=== PATIENT | female | born 1995 | race Caucasian/White ===

== ENCOUNTER 2017-08-04 07:15 | Inpatient (IN) ==
--- OUTSIDE RECORDS SUMMARY | 2017-08-04 07:28 | External Medical Summary | Continuity of Care Document ---
:1995 Author Organization [facility] Address [address] [place], [place] [id number] Phone Allergies, Adverse Reactions, Alerts Substance Reaction Severity Status No Known Drug Allergies Unknown Active Medications Medication Instructions Dosage Effective Dates Status Comments (start - stop) Vitamin B-6 50 mg - Active capsule Unisom Sleepgels 50 take 1 capsule by oral 50 MG - Active mg capsule route every day at bedtime as needed VITAMINS take 1 by Oral route - Active (unknown strength) every day Problems Condition Effective Dates (start - stop) Clinical Status Encntr screen for infections w sexl - mode of transmiss Encounter for screening for oth - infec/parastc diseases Encntr for suprvsn of normal first - preg, first trimester Encounter for screening of - mother 10 weeks gestation of - Maternal care for excess growth, - first trimester, unsp 13 weeks gestation of - Maternal care for excess growth, - second tri, unsp 19 weeks gestation of - Anemia complicating , third - trimester Encntr for suprvsn of normal first - preg, third trimester 30 weeks gestation of - Encntr for suprvsn of normal first - preg, second trimester 27 weeks gestation of - Encntr for suprvsn of normal first - preg, second trimester 23 weeks gestation of - Encntr for suprvsn of normal first - preg, second trimester 19 weeks gestation of - Encntr for suprvsn of normal first - preg, third trimester 32 weeks gestation of - Asthma Active Procedures Procedure Date No Charge Sonogram Infct antign, chlamydia trac, ampl OB Panel With An HIV Neisseria Gonorrhoeae, Amplification Urine Culture Antibody, varicella-zoster Venpnctr fngr/heel/ear stick routne Initial OB Visit No Charge OB Prepayment Agreement Results Test Name Date and Time Measure Units Reference Range Abnormal Flag Comments Panel Description: OBSTETRIC PANEL WHITE BLOOD CELL 10.5 Thousand/uL 3.8-10.8 N COUNT 14:40:00 RED BLOOD CELL 4.51 Million/uL 3.80-5.10 N COUNT 14:40:00 HEMOGLOBIN 12.8 g/dL 11.7-15.5 N 14:40:00 HEMATOCRIT 38.5 % 35.0-45.0 N 14:40:00 MCV 85.4 fL 80.0-100.0 N 14:40:00 MCH 28.4 pg 27.0-33.0 N 14:40:00 MCHC 33.2 g/dL 32.0-36.0 N 14:40:00 RDW 13.0 % 11.0-15.0 N 14:40:00 PLATELET COUNT 301 Thousand/uL 140-400 N 14:40:00 MPV 10.4 fL 7.5-12.5 N 14:40:00 ABSOLUTE 7896 cells/uL 1624-3659 H NEUTROPHILS 14:40:00 ABSOLUTE 1817 cells/uL 850-3900 N LYMPHOCYTES 14:40:00 ABSOLUTE 683 cells/uL 200-950 N MONOCYTES 14:40:00 ABSOLUTE 74 cells/uL 15-500 N EOSINOPHILS 14:40:00 ABSOLUTE 32 cells/uL 0-200 N BASOPHILS 14:40:00 NEUTROPHILS 75.2 % N 14:40:00 LYMPHOCYTES 17.3 % N 14:40:00 MONOCYTES 6.5 % N 14:40:00 EOSINOPHILS 0.7 % N 14:40:00 BASOPHILS 0.3 % N 14:40:00 ANTIBODY SCREEN, NO ANTIBODIES N RBC W/REFL ID, 14:40:00 DETECTED Reference range TITER AND AG No antibodies detected This assay is a screening test for the detection of red blood cell antibodies. The test is not to be used for pretransfusion screening or for the medical management of an alloimmunized . ABO GROUP O 14:40:00 RH TYPE RH(D) 14:40:00 POSITIVE RPR (DX) W/REFL NON-REACTIVE NON-REACTIV N TITER AND 14:40:00 E CONFIRMATORY TESTING HEPATITIS B NON-REACTIVE NON-REACTIV N SURFACE ANTIGEN 14:40:00 E RUBELLA ANTIBODY 1.78 index N Index (IGG) 14:40:00 Interpretation ----- <0.90 Not consistent with Immunity 0.90-0.99 Equivocal > or=1.00 Consistent with Immunity The presence of rubella IgG antibody suggests immunization or past or current infection withrubella virus.Test performed at [facility] [id number] [place] [address]Ijpxhcb r: VIJAY POLANCO DO,MPH Panel Description: Varicella zoster virus IgG Ab [Units/volume] in Serum by Immunoassay VARICELLA <135.00 index L Index ZOSTER VIRUS 14:40:00 Interpretation ANTIBODY (IGG) --------- <135.00 Negative - Antibody not detected 135.00 - 164.99 Equivocal > re=473.00 Positive - Antibody detected A positive result indicates that the patient has antibody to VZV but does not differentiate between an active or past infection. The clinical diagnosis must be interpreted in conjunction with the clinical signs and symptoms of the patient. This assay reliably measures immunity due to previous infection but may not be sensitive enough to detect antibodies induced by vaccination. Thus, a negative result in a vaccinated individual does not necessarily indicate susceptibility to VZV infection.Test performed at [facility] [id number] [place] [address]Jjjngtjt: VIJAY POLANCO DO,MPH Panel Description: HIV 1/2 ANTIGEN/ANTIBODY,FOURTH GENERATION W/RFL HIV NON-REACTIVE NON-REACTIVE N HIV-1 antigen and HIV-1/HIV- 2 antibodies were AG/AB, 14:40:00 notdetected. There is no laboratory evidence of 4TH GEN HIVinfection. PLEASE NOTE: This information has been disclosed toyou from records whose confidentiality may beprotected by state law. If your state requires suchprotection, then the state law prohibits you frommaking any further disclosure of the informationwithout the specific written consent of the personto whom it pertains, or as otherwise permitted by law.A general authorization for the release of medical orother information is NOT sufficient for this purpose. For additional information please refer tohttp://education.[email or web address]/faq/FFA609(This link is being provided for informational/educational purposes only.) The performance of this assay has not been clinicallyvalidated in patients less than 2 years old. REPORT COMMENT:FASTING:NOTest performed at [facility] [id number] [facility]51[place] [address]Vebwxcvg: VIJAY POLANCO DO,MPH Panel Description: Bacteria identified in Urine by Culture CULTURE, URINE, 14:43:00 SEE NOTE CULTURE, URINE, ROUTINE ROUTINE MICRO NUMBER: [id number] TEST STATUS: FINAL SPECIMEN SOURCE: URINE, CLEAN CATCH SPECIMEN QUALITY: ADEQUATE RESULT: No GrowthREPORT COMMENT:RFASTING:UNKNOWNTest performed at [facility] [id number] [place] [address]Vgfbipbl: VIJAY POLANCO DO,MPH Panel Description: CHLAMYDIA/N. GONORRHOEAE RNA, TMA CHLAMYDIA NOT DETECTED NOT DETECTED N TRACHOMATIS RNA, 14:44:00 TMA NEISSERIA NOT DETECTED NOT DETECTED N GONORRHOEAE RNA, 14:44:00 TMA [id number] SEE NOTE This test was 14:44:00 performed using the APTIMA COMBO2 Assay([employer] The analytical performance characteristics of this assay, when used to test SurePath specimens havebeen determined by [employer] REPORT COMMENT:FASTING:UNKNO WNTest performed at [facility] [id number] [place] [address]Ekzyayup: VIJAY POLANCO DO,MPH Panel Description: Pap Smear With HPV Reflex If ASCUS Document Advance Directives Directive Yes / No Effective Date File Name Unknown Encounters Encounter Practice Location Reason(s) Diagnoses Date Provider Care Team Description For Visit Members Karla Browning for Nov-0 Lopez Referring In Womens suprvsn of normal 1-201 Thais. Provider: Health YVETTE, first preg, third 7 700 Thais Lopez [address] [id number] weeks [facility], 700 1522, [facility] , [facility] [address] [place], 120, Nathan 120, , Juan R [place], [place], tel: [phone]. , [place]. tel: tel: [phone] Karla [place] Anemia May- Lopez Referring In Womens complicating 8-201 Thais. Provider: Health YVETTE, , third 7 700 Thais Lopez PO Box trimesterEncntr [facility], 700 1522, for suprvsn of [facility], normal first , [facility] [address] [place], preg, third 120, Nathan 120, [id number], [email or web address] weeks Juan R [place], gestation of [place], tel: [phone]. , [place]. tel: tel: [phone] Karla Browning for Sep-2 Lopez Referring In Womens suprvsn of normal 7-201 Thais. Provider: Health YVETTE, first preg, 7 700 Thais Lopez PO Box [facility], 700 1522, [email or web address] weeks [facility], [facility] of , [facility] [address] [place], 120, Nathan 120, [id number], Juan R [place], [place], [place], tel: [phone]. , [place]. tel: tel: [phone] Karla [place] Encntr for Aug-3 Lopez Referring In Womens suprvsn of normal 0-201 Thais. Provider: Mata CRAWFORD, first preg, 7 700 Thais Lopez PO Box [facility], 700 1522, [id number] weeks [facility], gestation of Dr, [facility] [address] [place], 120, Nathan 120, [id number], Juan R [place], [place], [place], tel: [phone]. , [place]. tel: tel: [phone] Karla [place] Encntr for Aug-0 Lopez Referring In Womens suprvsn of normal 2-201 Thais. Provider: Mata CRAWFORD, first preg, 7 700 Thais Lopez PO Box [facility], 700 1522, [id number] weeks [facility], gestation of Dr, [facility] [address] [place], 120, Nathan 120, , Juan R [place], [place], [place], tel: [phone]. , [place]. tel: tel: [phone] Karla [place] Maternal care for Aug-0 Lopez Referring In Womens Ultrasound excess 2-201 Thais. Provider: Mata CRAWFORD, growth, second 7 700 Thais Lopez PO Box tri, [email or web address] weeks Medical , 700 1522, gestation of [facility], , [facility] [address] [place], 120, Nathan 120, [id number], Juan R [place], [place], [place], tel: [phone]. , [place]. tel: tel: [phone] Karla [place] Maternal care for Tone-2 Lopez Referring In Womens excess 7-201 Thais. Provider: Mata CRAWFORD growth, first 7 700 Thais Lopez PO Box trimester, [email or web address] Medical , 700 1522, weeks gestation [facility] of , [facility] [address] [place], 120, Nathan 120, [id number], Juan R [place], [place], [place], tel: [phone]. , [place]. tel: tel: [phone] Associates Juan R Browning screen for December- Lopez Referring In Womens infections w sexl 1-201 Thais. Provider: Health [place], mode of 7 700 Thais Lopez PO Box transmissEncounte Medical K, 700 1522, r for screening [facility], for oth , [facility] [address] [place], infec/parastc 120, Nathan 120, , diseasesEncntr Juan R [place], for suprvsn of [place], [place], tel: normal first [phone]. preg, first , . tel: trimesterEncounte tel: [phone] r for [id number] screening of [id number] weeks gestation of Karla Pete December- Grabiel In Womens 2-201 Ruchi. Health YVETTE, 7 700 [address] [place], 120, [id number], Juan R, [place], tel: [phone] , [place]. tel: [phone] Family History Family Member Diagnosis Age At Onset No family history of Uterine Cancer Father Diabetes No family history of Cardiovascular Disease Paternal Grandmother Diabetes No family history of Pulmonary Embolism No family history of Breast Cancer No family history of Osteoporosis No family history of Kidney Disease No family history of Lung Disease Father Hypertension No family history of Colon Cancer No family history of Ovarian Cancer No family history of Thyroid Disorder No family history of Epilepsy No family history of Stroke No family history of Venous Thrombosis Immunizations Vaccine Date Status Comments Influenza, injectable, completed Note: Works at [employer] shot given quadrivalent, preservative free, at work ; Source: Source 3 yrs or older Unspecified Td (adult) preservative free completed Source: Other Provider Payers Payer name Insurance type Covered democrat ID Authorization(s) BCBS Out Of State [id number] Social History Type Description Quantity Date Captured Alcohol Use Details No Caffeine Use Details combo 1 cup per day Tobacco Use Status Never smoked tobacco Smoking Status Never smoker Vital Signs Date / Height Weight BMI Pulse Blood Temperature Respiratory Body Head BMI Time: Rate Pressure Rate Surface Circumference percentile Area 130.40 22.8 109/72 -2017 lbs 8 mm[Hg] 2:16 kg/m PM eter (2) Chief Complaint And Reason For Visit Unknown Chief Complaint And Reason For Visit Reason For Referral Reason For Referral Unknown Plan Of Care Date Type Action Status Appointment Jennifer Mckee BOOKED Future Order: Radiology Order Complete OB Ultrasound > 14 Ordered Weeks ([id number]) Date Type Problem Goal Intervention Status Start Date Unknown. History Of Present Illness Encounter Date Complaint History Of Present Illness This patient has no known history of present illness Functional Status Encounter Date Functional Assessment Cognitive Assessment Unknown Medications Administered Medication Instructions Dosage Effective Dates (start - stop) Status Comments Drug Treatment Unknown Instructions Date Instruction Additional Information gestational glucose lab screening genetic testing new ob handbook Zika virus assessment & precautions dentist, wt gain 25-35# HIV and other routine tests risk factors identified by history anticipated course of care nutrition and weight gain counseling, special diet toxoplasmosis precautions (cats / raw meat) exercise indications for ultrasound environmental / work hazards travel tobacco (ask, advise, assess, assist and arrange) alcohol illicit / recreational drugs use of any medications (including supplements, vitamins, herbs, OTC drugs) smoking counseling domestic violence seat belt use
--- OUTSIDE RECORDS SUMMARY | 2017-08-04 07:29 | External Medical Summary | Continuity of Care Document ---
:1995 Author Organization [facility] Address [address] [place], [place] [id number] Phone Allergies, Adverse Reactions, Alerts Substance Reaction [...] Dates (start - stop) Clinical Status Encntr for suprvsn of normal first - preg, second trimester 23 weeks gestation of - Maternal care for excess growth, - first trimester, unsp 13 weeks gestation of - Maternal care for excess growth, - second tri, unsp 19 weeks gestation of - Encntr screen for infections w sexl - mode of transmiss Encounter for screening for oth - infec/parastc diseases Encntr for suprvsn of normal first - preg, first trimester Encounter for screening of - mother 10 weeks gestation of - Encntr for suprvsn of normal first - preg, second trimester 19 weeks gestation of - Asthma Active Procedures Procedure Date OB Visit No Charge Results Test Name Date and Time Measure Units Reference Range Abnormal Flag Comments Unknown Advance Directives Directive Yes / No Effective Date File Name Unknown Encounters Encounter Practice Location Reason(s) Diagnoses Date Provider Care Team Description For Visit Members Karla Pete Encntr for Aug-3 Lopez Referring In Womens suprvsn of normal 0-201 Thais. Provider: Mata CRAWFORD, first preg, 7 700 Thais Lopez PO Box second Medical K, 700 1522, [email or web address] weeks [facility], gestation of Dr, [facility] Dr [place], 120, Nathan 120, [id number], Juan R [place], [place], [place], tel:[phone]. , [place]. tel: tel: [phone] Karla [place] Encntr for Aug-0 Lopez Referring In Womens suprvsn of normal 2-201 Thais. Provider: Mata CRAWFORD, first preg, 7 700 Thais Lopez PO Box second Medical , 700 1522, [email or web address] weeks [facility], gestation of , [facility] Dr [place], 120, Nathan 120, , Juan R [place], [place], tel:[phone]. , [place]. tel: tel: [phone] Karla [place] Maternal care for Aug-0 Lopez Referring In Womens Ultrasound excess 2-201 Thais. Provider: yuko Nino, second 7 700 Thais Lopez PO Box tri, [email or web address] weeks Medical , 700 1522, gestation of [facility], , [facility] Dr [place], 120, Nathan 120, [id number], Juan R [place], [place], tel:[phone]. , [place]. tel: tel: [phone] Karla Pete Maternal care for Tone-2 Lopez Referring In Womens excess 7-201 Thais. Provider: Mata CRAWFORD growth, first 7 700 Thais Lopez PO Box trimester, [email or web address] Medical K, 700 1522, weeks gestation [facility], of , [facility] Dr [place], 120, Nathan 120, [id number], Juan R [place], [place], [place], tel:[phone]. , [place]. tel: tel: [phone] Karla Pete [facility] screen for Lopez Referring In Womens infections w sexl -201 Thais. Provider: Health YVETTE, mode of 7 700 Thais Lopez PO Box trans[facility]Enc[facility] Medical K, 700 1522, r for screening [facility] Katheryn, for oth , [facility] Dr [place], infec/parastc 120, Nathan 120, [id number], diseasesEncntr Juan R [place], for suprvsn of [place], [place], tel: normal first [phone]. preg, [facility] , [place]. tel: trimesterEncounte tel: [phone] r for [phone] screening of [id number] weeks gestation of Karla Pete December- Grabiel In Womens 2-201 Ruchi. Mata CRAWFORD, 7 700 [address] Medical [address], [place] Katheryn, , [facility] [place], 120, [id number], [facility] [place], tel: [phone] , . tel: [phone] Family History Family Member Diagnosis Age At [...] Venous Thrombosis Immunizations Vaccine Date Status Comments Td (adult) preservative free completed Source: Other Provider Payers Payer name Insurance type Covered green party ID Authorization(s) BCBS Out Of State [id number] Social History Type Description Quantity Date Captured Alcohol Use Details No Caffeine Use Details Unknown Tobacco Use Status Unknown Smoking Status Never smoker Vital Signs Date / Height Weight BMI Pulse Blood Temperature Respiratory Body Head BMI Time: Rate Pressure Rate Surface Circumference percentile Area 139.00 24.3 122/70 -2017 lbs 9 mm[Hg] 3:49 kg/m PM eter (2) Chief Complaint And Reason For Visit Unknown Chief Complaint And Reason For Visit Reason For Referral Reason For Referral Unknown Plan Of Care Date Type Action Status Appointment Jennifer Mckee BOOKED Future Order: Radiology Order Complete OB Ultrasound > 14 Ordered Weeks ([id number]) Date Type Problem Goal Intervention Status Start Date Unknown. History Of Present Illness Encounter Date Complaint History Of Present Illness This patient has no known history of present illness Functional Status Encounter Date Functional Assessment Cognitive Assessment Unknown Medications Administered Medication Instructions Dosage Effective Dates (start - stop) Status Comments Drug Treatment Unknown Instructions Date Instruction Additional Information genetic testing new ob handbook Zika virus [...]
--- OUTSIDE RECORDS SUMMARY | 2017-08-04 07:29 | External Medical Summary | Continuity of Care Document ---
:1993 Author Organization [facility] Address [address] [place], [place] [address] Phone Allergies, Adverse Reactions, Alerts Substance Reaction [...] Effective Dates (start - stop) Clinical Status Maternal care for excess growth, - second tri, unsp 19 weeks gestation of - Maternal care for excess growth, - first trimester, unsp 13 weeks gestation of - Encntr screen for infections w sexl - mode of transmiss Encounter for screening for oth - infec/parastc diseases Encntr for suprvsn of normal first - preg, first trimester Encounter for screening of - mother 10 weeks gestation of - Encntr for suprvsn of normal first - preg, second trimester 19 weeks gestation of - Asthma Active Procedures Procedure Date Ultrasound exam of preg uterus, complete Results Test Name Date and Time Measure Units Reference Range Abnormal Flag Comments Unknown Advance Directives Directive Yes / No Effective Date File Name Unknown Encounters Encounter Practice Location Reason(s) Diagnoses Date Provider Care Team Description For Visit Members Karla Pete Encntr for Lopez Referring In [facility] suprvsn of normal 2-201 Thais. Provider: Health YVETTE, first preg, 7 700 Thais Lopez PO Box second Medical K, 700 1522, [id number] weeks [facility], gestation of Dr, [facility] [place] Dr [place]LOW, 120, Nathan 120, [id number], Juan R [place], [place], [place], tel: [phone]. , [place]. tel: tel: [phone] Karla Pete Maternal care for Aug-0 Lopez Referring In Womens Ultrasound excess 2-201 Thais. Provider: Health YVETTE, growth, second 7 700 Thais Lopez PO Box tri, [email or web address] weeks Medical , 700 1522, [facility], Dr, [facility] [place] [place] Dr [place], 120, Nathan 120, , Juan R Pete, [place], [place], tel: [phone]. , [place]. tel: tel: [phone] Karla Pete Maternal care for Tone-2 Lopez Referring In Womens excess 7-201 Thais. Provider: Mata CRAWFORD, growth, first 7 700 Thais Lopez PO Box trimester, [email or web address] Medical K, 700 1522, weeks gestation [facility], of Dr, [facility] [place] Dr [place]LOW, 120, Nathan 120, , Juan R Pete, [place], [place], tel: [phone]. , [place]. tel: tel: [phone] Kalra Pete Encntr screen for December-3 Lopez Referring In Womens infections w sexl 1-201 Thais. Provider: Health YVETTE, mode of 7 700 Thais Lopez PO Box transmissEncounte Medical , 700 1522, r for screening [facility], for oth , [facility] [place] Dr [place], infec/parastc 120, Nathan 120, , diseasesEncntr Juan R [place], for suprvsn of [place], [place], tel: normal first [phone]. preg, first , [place]. tel: trimesterEncounte tel: [phone] r for [phone] screening of [id number] weeks gestation of Associates Juan R [facility] 2-201 [facility], 7 700 PO [facility] [address], [place] [address] Katheryn, [facility] [place], 120, [id number], [place], [place], tel: [phone] , [place]. tel: [phone] Family History Family Member Diagnosis Age At [...] Provider Payers Payer name Insurance type Covered libertarian ID Authorization(s) BCBS Out Of State [id number] Social History Type Description Quantity Date Captured Unknown Vital Signs Date / Height Weight BMI Pulse Blood Temperature Respiratory Body Head BMI Time: Rate Pressure Rate Surface Circumference percentile Area Unknown Chief Complaint And Reason For Visit Unknown Chief Complaint And Reason For Visit Reason For Referral Reason For Referral Unknown Plan Of Care Date Type Action Status Appointment Jennifer Mckee BOOKED Future Order: Radiology Order Complete OB Ultrasound > 14 Ordered Weeks ([id number]) Date Type Problem Goal Intervention Status Start [...] ob handbook Zika virus assessment & precautions dentistterrell 25-35# HIV and other routine tests risk [...]
--- OUTSIDE RECORDS SUMMARY | 2017-08-04 07:29 | External Medical Summary | Continuity of Care Document ---
:1995 Author Organization [facility] Address [address] [place], [place] [id number] Phone Allergies, Adverse Reactions, Alerts Substance Reaction [...] second trimester 27 weeks gestation of - Maternal care for [...] Procedures Procedure Date OB Visit No Charge Hemoglobin count, colorimetric Hematocrit blood count Glucose test Venpnctr fngr/heel/ear stick routne Results Test Name Date and Time Measure Units Reference Range Abnormal Flag Comments Panel Description: Glucose [Mass/volume] in Serum or Plasma --1 hour post 50 g glucose PO GLUCOSE, 107 mg/dL <140 N Test performed at [facility] GESTATIONAL SCREEN 16:51:00 DIAGNOSTICS [id number] ([id number])-[id number] [place] [address]Qwdocdek: VIJAY POLANCO DO,MPH Panel Description: HEMOGLOBIN + HEMATOCRIT HEMOGLOBIN 16:51:00 10.5 g/dL 11.7-15.5 L HEMATOCRIT 16:51:00 29.9 % 35.0-45.0 L REPORT COMMENT:FASTING :NOTest performed at [facility] [id number] [place] [address]Jrudfrqr: VIJAY POLANCO DO,MPH Advance Directives Directive Yes / No Effective Date File Name Unknown Encounters Encounter Practice Location Reason(s) Diagnoses Date Provider Care Team Description For Visit Members Associates [facility] Encntr for Sep- Lopez Referring In Womens suprvsn of normal 7-201 Thais. Provider: Mata CRAWFORD, first preg, 7 700 Thais Lopez [address] [facility], 700 1522, [email or web address] weeks [facility], gestation of Dr [facility] Dr BARLOW, 120, Nathan 120, , Juan R Pete, [place], tel: [phone]. , [place]. tel: tel: [phone] Karla Pete Encntr for Mar-3 Lopez Referring In Womens suprvsn of normal 0-201 Thais. Provider: Mata CRAWFORD, first preg, 7 700 Thais Lopez PO Box [facility] , 700 1522, [email or web address] weeks [facility], gestation of Dr [facility] Dr BARLOW, 120, Nathan 120, [id number], Juan R Pete, [place], tel: [phone]. , [place]. tel: tel: [phone] Karla Pete Encntr for Aug-0 Lopez Referring In Womens suprvsn of normal 2-201 Thais. Provider: Mata CRAWFORD, first preg, 7 700 Thais Lopez PO Box second Medical K, 700 1522, [email or web address] weeks [facility], gestation of Dr, [facility] Dr BARLOW, 120, Nathan 120, [id number], Juan R Pete, [place], [place], tel: [phone]. , [place]. tel: tel: [phone] Karla Pete Maternal care for Aug-0 Lopez Referring In Womens Ultrasound excess 2-201 Thais. Provider: Mata CRAWFORD, growth, second 7 700 Thais Lopez PO Box tri, [email or web address] weeks [facility], 700 1522, gestation of [facility], Dr, [facility] Dr BARLOW, 120, Nathan 120, , Juan R Pete, [place], [place], tel: [phone]. , [place]. tel: tel: [phone] Karla Pete Maternal care for Tone-2 Lopez Referring In Womens excess 7-201 Thais. Provider: Mata CRAWFORD, growth, first 7 700 Thais Lopez PO Box trimester, [email or web address] Medical , 700 1522, weeks gestation [facility], of , [facility] Dr BARLOW, 120, Nathan 120, [id number], Juan R Pete, [facility], [place], tel: [phone]. , [place]. tel: tel: [phone] Associates Juan R Encntr screen for May-3 Lopez Referring In Womens infections w sexl 1-201 Thais. Provider: Mata CRAWFORD, mode of 7 700 Thais Lopez PO Box transmissEncounte [facility], 700 1522, r for screening [facility], for oth , [facility] Dr BARLOW, infec/parastc 120, Nathan 120, , diseasesEncntr Juan R Pete, for suprvsn of [place], [place], tel: normal first [phone]. preg, first , [place]. tel: trimesterEncounte tel: [phone] r for [id number] screening of [id number] weeks gestation of Associates Juan R December- Grabiel In Womens 2-201 Ruchi. [facility], 7 700 PO [facility] [address], [place] [address] Katheryn, [facility], 120, [id number], [facility], tel: [phone] , . tel: [phone] Family History Family Member Diagnosis Age At [...] party ID Authorization(s) BCBS Out Of State [id number] Social History Type Description Quantity Date Captured Alcohol Use Details No Caffeine Use Details Unknown Tobacco Use Status Unknown Smoking Status Never smoker Vital Signs Date / Height Weight BMI Pulse Blood Temperature Respiratory Body Head BMI Time: Rate Pressure Rate Surface Circumference percentile Area 147.00 25.7 103/58 lbs 9 mm[Hg] 3:56 kg/m PM eter (2) . 9 3:54 kg/m PM eter (2) Chief Complaint And Reason For Visit Unknown Chief Complaint And Reason For Visit Reason For Referral Reason For Referral Unknown Plan Of Care Date Type Action Status Appointment Jennifer Mckee BOOKED Future Order: Radiology Order Complete OB Ultrasound > 14 Ordered Weeks (50580) Date Type Problem Goal Intervention Status Start [...]
--- OUTSIDE RECORDS SUMMARY | 2017-08-04 07:29 | External Medical Summary | Continuity of Care Document ---
:1993 Author Organization [facility] Allergies Active Description Code Type Severity Reaction Onset Reported/ Identified Relationship Clinical to Patient Status Yes No Known 08198 3 N/A N/A Drug 0 Allergies Medications Medication Packaging Start Date Stop Date Route Dosage Sig Tablet 02/09/2017 03/17/2017 ZOFRAN Problems Date Dx Coded Attending Type Code Diagnosis Diagnosed By 03/17/2017 Thais Lopez O36.62x0 Maternal care for excess growth, second tri, unsp 03/17/2017 Thais Lopez Z3A.19 19 weeks gestation of Procedures Code Description [place] [address] Ultrasnd 03/17/2017 exam of preg uterus, compl Results There is no data. Encounters ACCT No. Visit Discharge Status Pt. Type Provider Facility Loc./Unit Complaint Date/Time [id number] 07/29/2017 07/29/2017 CLS Outpatient Lopez, 15:45:00 23:59:59 Thais Briggs [id number] 07/23/2017 07/23/2017 CLS Outpatient Lopez, 08:55:00 23:59:59 Thais Briggs [id number] 07/15/2017 07/15/2017 CLS Outpatient Lopez, 11:15:00 23:59:59 Thais Briggs [id number] 06/29/2017 06/29/2017 CLS Outpatient Lopez, 09:20:00 23:59:59 Thais Briggs [id number] 06/16/2017 06/16/2017 CLS Outpatient Lopez, 15:30:00 23:59:59 Thais Briggs [id number] 06/02/2017 06/02/2017 CLS Outpatient Lopez, 15:45:00 23:59:59 Thais Briggs [id number] 05/13/2017 05/13/2017 CLS Outpatient Lopez, 08:27:00 23:59:59 Thais Briggs [id number] 05/12/2017 05/12/2017 CLS Outpatient Lopez, 15:45:00 23:59:59 Thais Briggs [id number] 04/14/2017 04/14/2017 CLS Outpatient Lopez, 15:45:00 23:59:59 Thais Briggs [id number] 03/17/2017 03/17/2017 CLS Outpatient Lopez, 15:45:00 23:59:59 Thais Briggs [id number] 03/17/2017 03/17/2017 CLS Outpatient Lopez, 15:15:00 23:59:59 Thais Briggs [id number] 02/09/2017 02/09/2017 CLS Outpatient Lopez, 15:00:00 23:59:59 Thais Briggs [id number] 01/13/2017 01/13/2017 CLS Outpatient Lopez, 14:00:00 23:59:59 Thais Briggs [id number] 01/04/2017 01/04/2017 CLS Outpatient Grabiel, 10:52:00 23:59:59 Ruchi Haider
--- OUTSIDE RECORDS SUMMARY | 2017-08-04 07:29 | External Medical Summary | Continuity of Care Document ---
:1993 Author Organization [facility] Address [address] [place], [place] [address] Phone Allergies, Adverse Reactions, Alerts Substance Reaction [...] Status Maternal care for excess growth, - first trimester, unsp 13 weeks gestation of - Maternal care for excess growth, - second tri, unsp 19 weeks gestation of - Anemia complicating , third - trimester Encntr for suprvsn of normal first - preg, third trimester 30 weeks gestation of - Encntr screen for [...] of - Asthma Active Procedures Procedure Date Unknown Results Test Name Date and Time Measure Units Reference Range Abnormal Flag Comments Unknown Advance Directives Directive Yes / No Effective Date File Name Unknown Encounters Encounter Practice Location Reason(s) Diagnoses Date Provider Care Team Description For Visit Members Associates Juan R Anemia Oct- Lopez Referring In Womens complicating 8-201 Thais. Provider: Mata CRAWFORD, , third 7 700 Thais Lopez [address] Box [facility]ntr Medical K, 700 1522, for suprvsn of [facility], normal first , [facility] Dr BARLOW, preg, third 120, Nathan 120, , [email or web address] weeks Juan R Pete, gestation of [place], tel:+ [phone]. , [place]. tel: tel: [phone] Karla Pete Sep-2 Lopez In Womens 8-201 Thais. Mata CRAWFORD, 7 700 [address], [place], , [facility] [place], 120, , [place] Pete, tel:[phone] , [place]. tel: [phone] Karla Browning for Sep-2 Lopez Referring In Womens suprvsn of normal 7-201 Thais. Provider: Mata CRAWFORD, first preg, 7 700 Thais Lopez PO Box second Medical K, 700 1522, [email or web address] weeks [facility], gestation of Dr [facility] Dr BARLOW, 120, Nathan 120, , Juan R Pete, [place], tel:[phone]. , [place]. tel: tel: [phone] Karla Browning for Aug-3 Lopez Referring In Womens suprvsn of normal 0-201 Thais. Provider: Mata CRAWFORD, first preg, 7 700 Thais Lopez PO Box second Medical K, 700 1522, [email or web address] weeks [facility], gestation of Dr [facility] Dr BARLOW, 120, Nathan 120, , Juan R Pete, [place], tel:+ [phone]. , [place]. tel: tel: [phone] Karla Pete Encntr for Aug-0 Lopez Referring In Womens suprvsn of normal 2-201 Thais. Provider: Mata CRAWFORD, first preg, 7 700 Thais Lopez PO Box second Medical K, 700 1522, [email or web address] weeks [facility], gestation of , [facility] Dr BARLOW, 120, Nathan 120, [id number], Juan R Pete, [place], tel:+ [phone]. , [place]. tel: tel: [phone] Karla Pete Maternal care for Aug-0 Lopez Referring In Womens Ultrasound excess 2-201 Thais. Provider: Mata CRAWFORD, growth, second 7 700 Thais Lopez PO Box tri, [email or web address] weeks [facility], 700 1522, gestation of [facility], Dr, [facility] Dr [place]LOW, 120, Nathan 120, , Juan R Pete, [place], tel:+ [phone]. , [place]. tel: tel: [phone] Karla Pete Maternal care for Tone-2 Lopez Referring In Womens excess 7-201 Thais. Provider: Mata CRAWFORD, growth, first 7 700 Thais Lopez PO Box trimester, [email or web address] Medical , 700 1522, weeks gestation [facility], of Dr, [facility] Dr BARLOW, 120, Nathan 120, [id number], Juan R Pete, [place], tel: [phone]. , [place]. tel: tel: [phone] Karla Pete Encntr screen for May-3 Lopez Referring In Womens infections w sexl 1-201 Thais. Provider: Mata CRAWFORD, mode of 7 700 Thais Lopez PO Box transmissEncounte [facility], 700 1522, r for screening [facility], for oth , [facility] Dr BARLOW, infec/parastc 120, Nathan 120, [id number], [facility] for [facility] of [place], tel: normal first [phone]. preg, [facility] , . tel: trimesterEncounte tel: [phone] r for [id number] screening of weeks gestation of Associates Juan R December- [facility] In Womens 2-201 [facility], 7 700 [facility] 15[address], [place] [address] Katheryn, [facility] [place], 120, [id number], [facility] [place], tel: [phone] , . tel: [phone] Family History Family Member Diagnosis Age At [...] Comments Influenza, injectable, completed Note: Works at [employer] shot given quadrivalent, preservative free, at work ; Source: Source 3 yrs or older Unspecified Td (adult) preservative free completed Source: Other Provider Payers Payer name Insurance type Covered libertarian ID Authorization(s) BCBS Out Of State [id number] Social History Type Description Quantity Date Captured [...] Complete OB Ultrasound > 14 Ordered Weeks (93172) Date Type Problem Goal Intervention Status Start [...]
--- OUTSIDE RECORDS SUMMARY | 2017-08-04 07:29 | External Medical Summary | Continuity of Care Document ---
:1993 Author Organization [facility] Address [address] [place], [place] [phone] Phone Allergies, Adverse Reactions, Alerts Substance Reaction [...] route - Active (unknown strength) every day iron 325 mg (65 mg take 1 tablet by ORAL 325 MG - Active iron) tablet route 2 times every day Problems Condition Effective Dates (start - stop) Clinical Status Encntr for suprvsn of normal first - preg, third trimester 33 weeks gestation of - Maternal care for [...] of normal first - preg, third trimester Encounter For Screening For - Streptococcus B 36 weeks gestation of - Encntr for suprvsn [...] Team Description For Visit Members Karla Pete Encntgill for Nov-3 Lopez Referring In Womens suprvsn of normal 0-201 Thais. Provider: Health [facility], first preg, third 7 700 Thais Lopez PO Box trimesterEncounte Medical , 700 1522, r For [facility], Screening For Dr, [facility] Dr BARLOW, Streptococcus B36 120, Nathan 120, , weeks gestation Juan R Pete, [place] of [place], tel: [phone]. , [place]. tel: tel: [phone] Karla Pete Encntr for Nov-1 Lopez Referring In Womens suprvsn of normal 4-201 Thais. Provider: [facility] [place], first preg, third 7 700 Thais Lopez PO Box [email or web address] weeks Medical , 700 1522, gestation of [facility], , [facility] Dr BARLOW, 120, Nathan 120, [id number], Juan R Pete, [place], tel: [phone]. , [place]. tel: tel: [phone] Karla Pete Encntr for Nov-0 Lopez Referring In Womens suprvsn of normal 1-201 Thais. Provider: Health YVETTE, first preg, third 7 700 Thais Lopez PO Box [email or web address] weeks Medical , 700 1522, [facility] Dr, [facility] Dr BARLOW, 120, Nathan 120, , Juan R Pete, [place], tel:+ [phone]. , [place]. tel: tel: [phone] Karla Pete Anemia Oct- Lopez Referring In Womens complicating 8-201 Thais. Provider: Health YVETTE, , third 7 700 Thais Lopez PO Box trimesterEncntr Medical , 700 1522, for suprvsn of [facility], normal first Dr, [facility] Dr BARLOW, preg, third 120, Nathan 120, , [email or web address] weeks Juan R Pete, gestation of [place], tel: [phone]. , [place]. tel: tel: [phone] Karla Jamisonr for Sep-2 Lopez Referring In Womens suprvsn of normal 7-201 Thais. Provider: Health YVETTE, first preg, 7 700 Thais Lopez PO Box second Medical , 700 1522, [email or web address] weeks [facility], gestation of Dr, [facility] Dr BARLOW, 120, Nathan 120, , Juan R Pete, [place], tel: [phone]. , [place]. tel: tel: [phone] Karla Jamisonr for Mar-3 Lopez Referring In Womens suprvsn of normal 0-201 Thais. Provider: Health YVETTE, first preg, 7 700 Thais Lopez PO Box second Medical , 700 1522, [email or web address] weeks [facility], gestation of Dr, [facility] Dr BARLOW, 120, Nathan 120, , Juan R Pete, [place], tel: [phone]. , [place]. tel: tel: [phone] Karla Tiradontr for Aug-0 Lopez Referring In Womens suprvsn of normal 2-201 Thais. Provider: Mata CRAWFORD, first preg, 7 700 Thais Lopez PO Box second Medical K, 700 1522, [email or web address] weeks [facility], gestation of Dr, [facility] Dr BARLOW, 120, Nathan 120, [id number], Juan R Pete, [place], tel:[phone]. , [place]. tel: tel: [phone] Karla Pete Maternal care for Aug-0 Lopez Referring In Womens Ultrasound excess 2-201 Thais. Provider: Mata CRAWFORD, growth, second 7 700 Thais Lopez PO Box tri, [email or web address] weeks [facility], 700 1522, gestation of [facility], Dr, [facility] Dr BARLOW, 120, Nathan 120, [id number], Juan R Pete, [place], [place], tel:[phone]. , [place]. tel: tel: [phone] Karla Pete Maternal care for Tone-2 Lopez Referring In Womens excess 7-201 Thais. Provider: Mata CRAWFORD, growth, first 7 700 Thais Lopez PO Box trimester, [email or web address] Medical K, 700 1522, weeks gestation [facility], of Dr, [facility] Dr BARLOW, 120, Nathan 120, [id number], Juan R Pete, [place], tel:[phone]. , [place]. tel: tel: [phone] Karla Pete Encdashawn screen for December-3 Lopez Referring In Womens infections w sexl 1-201 Thais. Provider: Mata CRAWFORD, mode of 7 700 Thais Lopez PO Box transmissEncounte [facility], 700 1522, r for screening [facility], for oth , [facility] Dr BARLOW, infec/parastc 120, Nathan 120, , diseasesEncntr Juan R Pete, for suprvsn of [place], [place], tel:+ normal first [phone]. preg, first , [place]. tel: trimesterEncounte tel: [phone] r for [id number] screening of [email or web address] weeks gestation of Associates Juan R Grabiel In [facility] 2-201 [facility], 7 700 PO [facility] [address], [place] [address] Katheryn, [place], 120, [id number], [facility] [place], tel: [phone] , . tel: [phone] Family History Family Member Diagnosis Age At [...] Venous Thrombosis Immunizations Vaccine Date Status Comments Tdap completed Source: Other Provider Influenza, injectable, completed Note: Works at [employer] shot given quadrivalent, preservative free, at work ; Source: Source 3 yrs or older Unspecified Td (adult) preservative free completed Source: Other Provider Payers Payer name Insurance type Covered libertarian ID Authorization(s) BCBS Out Of State [id number] Social History Type Description Quantity Date Captured Alcohol Use Details No Caffeine Use Details Unknown Tobacco Use Status Unknown Smoking Status Never smoker Vital Signs Date / Height Weight BMI Pulse Blood Temperature Respiratory Body Head BMI Time: Rate Pressure Rate Surface Circumference percentile Area 154.30 27.0 / lbs 7 mm[Hg] 9:25 kg/m AM eter (2) Chief Complaint And Reason For Visit Unknown Chief Complaint And Reason For Visit Reason For Referral Reason For Referral Unknown Plan Of Care Date Type Action Status Appointment Jennifer Mckee BOOKED Future Order: Radiology Order Complete OB Ultrasound > 14 Ordered Weeks (83844) Date Type Problem Goal Intervention Status Start Date Unknown. History Of Present Illness Encounter Date Complaint History Of Present Illness This patient has no known history of present illness Functional Status Encounter Date Functional Assessment Cognitive Assessment Unknown Medications Administered Medication Instructions Dosage Effective Dates (start - stop) Status Comments Drug Treatment Unknown Instructions Date Instruction Additional Information labor signs group B strep screening gestational glucose lab screening genetic testing new [...]
--- OUTSIDE RECORDS SUMMARY | 2017-08-04 07:29 | External Medical Summary | Continuity of Care Document ---
:1995 Author Organization [email or web address] Address [address] [place], [place] [id number] Phone Allergies, Adverse Reactions, Alerts Substance Reaction [...] third trimester 32 weeks gestation of - Maternal care for excess growth, - first trimester, unsp 13 weeks gestation of - Encntr for suprvsn [...] Karla [place] Encntr for Lopez Referring In Womens suprvsn of normal 4-201 Thais. Provider: Health YVETTE, first preg, third 7 700 Thais Lopez PO Box weeks [facility], 700 1522, gestation of [facility], , [facility] Dr BARLOW, 120, Nathan 120, , Juan R [place], [place], tel: [phone]. , [place]. tel: tel: [phone] Karla [place] Encntr for Jun- Lopez Referring In Womens suprvsn of normal 1-201 Thais. Provider: Mata CRAWFORD, first preg, third 7 700 Thais Lopez PO Box [id number] weeks Medical , 700 1522, gestation of [facility], , [facility] Dr [place], 120, Nathan 120, , Juan R [place], [place], tel: [phone]. , [place]. tel: tel: [phone] Karla Pete Anemia May- Lopez Referring In Womens complicating 8-201 Thais. Provider: Health YVETTE, , third 7 700 Thais Lopez PO Box trimesterEncntr [facility], 700 1522, for [facility]n [facility], normal first Dr [facility] Dr BARLOW, preg, third 120, Nathan 120, , [id number] weeks Juan R [place], gestation of [place], [place], tel: [phone]. , [place]. tel: tel: [phone] Karla [place] Encntr for Sep-2 Lopez Referring In Womens suprvsn of normal 7-201 Thais. Provider: Mata CRAWFORD, first preg, 7 700 Thais Lopez PO Box [facility] Medical , 700 1522, [id number] weeks [facility], gestation of , [facility] Dr BARLOW, 120, Nathan 120, , Juan R [place], [place], [place], tel:[phone]. , [place]. tel: tel: [phone] Karla [place] Encntr for Aug-3 Lopez Referring In Womens suprvsn of normal 0-201 Thais. Provider: Mata CRAWFORD, first preg, 7 700 Thais Lopez PO Box [facility] Medical , 700 1522, weeks [facility], gestation of Dr, [facility] Dr [place]LOW, 120, Nathan 120, , Juan R Pete, [facility], [place], tel:[phone]. , [place]. tel: tel: [phone] Karla Pete Encntr for Aug-0 Lopez Referring In Womens suprvsn of normal 2-201 Thais. Provider: Mata CRAWFORD, first preg, 7 700 Thais Lopez PO Box [facility] Medical , 700 1522, weeks [facility], gestation of , [facility] Dr [place], 120, Nathan 120, , Juan R [place], [place], [place], tel: [phone]. , [place]. tel: tel: [phone] Karla [place] Maternal care for Aug-0 Lopez Referring In Womens Ultrasound excess 2-201 Thais. Provider: Mata CRAWFORD, growth, second 7 700 Thais Lopez PO Box tri, [id number] weeks [facility], 700 1522, gestation of [facility], Dr, [facility] Dr [place]LOW, 120, Nathan 120, [id number], Juan R Pete, [place], [place], tel: [phone]. , [place]. tel: tel: [phone] Associates Juan R Maternal care for Tone-2 Lopez Referring In Womens excess 7-201 Thais. Provider: Mata CRAWFORD, growth, first 7 700 Thais Lopez PO Box trimester, [id number] Medical , 700 1522, weeks gestation [facility], of , [facility] Dr [place], 120, Nathan 120, [id number], Juan R Pete, [place], [place], tel: [phone]. , [place]. tel: tel: [phone] Associates Juan R Encntgill screen for December-3 Lopez Referring In Womens infections w sexl 1-201 Thais. Provider: Mata CRAWFORD, mode of 7 700 Thais Lopez PO Box [facility] Medical , 700 1522, r for screening [facility], for oth , [facility] Dr [place]LOW, infec/parastc 120, Nathan 120, , diseasesEncntr Juan R Pete, for suprvsn of [place], [place], tel: normal first [phone]. preg, [facility] , [place]. tel: trimesterEncounte tel: [phone] r for [phone] screening of [id number] weeks gestation of Associates Juan R December-2 Grabiel In Womens 2-201 Ruchi. Mata CRAWFORD, 7 700 PO Box Medical 1522, [facility] [place], 120, [id number], [place], [place], tel:[phone] , [place]. tel: [phone] Family History Family Member Diagnosis Age At [...] Comments Influenza, injectable, completed Note: Works at [employer] shot given quadrivalent, preservative free, at work ; Source: Source 3 yrs or older Unspecified Td (adult) preservative free completed Source: Other Provider Payers Payer name Insurance type Covered democrat ID Authorization(s) BCBS Out Of State [id number] Social History Type Description Quantity Date Captured Alcohol Use Details No Caffeine Use Details Unknown Tobacco Use Status Unknown Smoking Status Never smoker Vital Signs Date / Height Weight BMI Pulse Blood Temperature Respiratory Body Head BMI Time: Rate Pressure Rate Surface Circumference percentile Area 151.80 26.6 111/ lbs 3 mm[Hg] 3:40 kg/m PM eter (2) Chief Complaint And Reason For Visit Unknown Chief Complaint And Reason For Visit Reason For Referral Reason For Referral Unknown Plan Of Care Date Type Action Status Appointment Jennifer Mckee BOOKED Future Order: Radiology Order Complete OB Ultrasound > 14 Ordered Weeks ([id number]) Date Type Problem Goal Intervention Status Start [...]
--- OUTSIDE RECORDS SUMMARY | 2017-08-04 07:29 | External Medical Summary | Continuity of Care Document ---
:1995 Author Organization [facility] Address [address] [place], [place] [id number] Phone Allergies, Adverse Reactions, Alerts Substance Reaction [...] second trimester 19 weeks gestation of - Maternal care [...] - mother 10 weeks gestation of - Asthma Active Procedures Procedure Date OB Visit No Charge Results Test Name Date and Time Measure Units Reference Range Abnormal Flag Comments Unknown Advance Directives Directive Yes / No Effective Date File Name Unknown Encounters Encounter Practice Location Reason(s) Diagnoses Date Provider Care Team Description For Visit Members Karla [place] Encntr for Lopez Referring In [facility] suprvsn of normal 2-201 Thais. Provider: Health [place], first preg, 7 700 Thais Lopez PO Box second Medical K, 700 1522, [id number] weeks [facility], gestation of Dr, [facility] Dr [place], 120, Nathan 120, [id number], Juan R Pete, [place], tel:+ [phone]. , [place]. tel: tel: [phone] Karla [place] Maternal care for Aug-0 Lopez Referring In Womens Ultrasound excess 2-201 Thais. Provider: Health YVETTE, growth, second 7 700 Thais Lopez PO Box tri, [id number] weeks Medical , 700 1522, gestation of [facility], , [facility] Dr [place], 120, Nathan 120, [id number], Juan R Pete, [place], [place], tel:+ [phone]. , [place]. tel: tel: [phone] Karla Pete Maternal care for Tone-2 Lopez Referring In Womens excess 7-201 Thais. Provider: Mata CRAWFORD, growth, first 7 700 Thais Lopez PO Box trimester, [id number] Medical K, 700 1522, weeks gestation [facility], of Dr, [facility] Dr [place], 120, Nathan 120, [id number], Juan R Pete, [place], tel: [phone]. , [place]. tel: tel: [phone] Karla [place] Encntgill screen for December- Lopez Referring In Womens infections w sexl 1-201 Thais. Provider: Health YVETTE, mode of 7 700 Thais Lopez PO Box [facility] Medical , 700 1522, r for screening [facility], for oth , [facility] Dr [place], infec/parastc 120, Nathan 120, , diseasesEncntr Juan R [place], for suprvsn of [place], [place], tel: normal first [phone]. preg, first , [place]. tel: trimesterEncounte tel: [phone] r for [phone] screening of [id number] weeks gestation of Associates Juan R [facility] 2-201 [facility], 7 700 PO [facility] [address], [address] Katheryn, [facility] [place], 120, [id number], [facility] [place], tel:[phone] , . tel: [phone] Family History Family Member Diagnosis Age At [...] democrat ID Authorization(s) BCBS Out Of State [id number] Social History Type Description Quantity Date Captured Alcohol Use Details No Caffeine Use Details Unknown Tobacco Use Status Unknown Smoking Status Never smoker Vital Signs Date / Height Weight BMI Pulse Blood Temperature Respiratory Body Head BMI Time: Rate Pressure Rate Surface Circumference percentile Area 135.60 23.7 110/61 -2017 lbs 9 mm[Hg] 4:04 kg/m PM eter (2) Chief Complaint And Reason For Visit Unknown Chief Complaint And Reason For Visit Reason For Referral Reason For Referral Unknown Plan Of Care Date Type Action Status Appointment Jennifer Mckee BOOKED Future Order: Radiology Order Complete OB Ultrasound > 14 Ordered Weeks ([id number]) Date Type Problem Goal Intervention Status Start [...] ob handbook Zika virus assessment & precautions May-31-2017 dentist, wt gain 25-35# HIV and other [...]
[2017-08-04] MEDS ORDERED: ACETAMINOPHEN 500 MG TABLET PO PRN ×2 (07:41→08:06)
[2017-08-04] MEDS ORDERED: LIDOCAINE 1% (10mg/ml) 2mL INJ PF SDV ID PRN ×2 (07:41→08:06)
[2017-08-04] MEDS ORDERED: METHYLERGONOVINE 0.2 MG/ML INJECTION IM PRN (07:41)
[2017-08-04] MEDS ORDERED: MAG-AL + SIM ORAL LIQUID 30ml PO PRN (07:41)
[2017-08-04] MEDS ORDERED: CARBOPROST 250 MCG/ML INJECTION IM PRN (07:41)
[2017-08-04] MEDS ORDERED: CALCIUM CARBONATE Chewable 500mg TABLET PO PRN (07:41)
[2017-08-04] MEDS: LR 1,000 ML IV PRN ×2 (08:02→08:39)
[2017-08-04] MEDS ORDERED: D5LR 1,000 ML IV SCH (08:15)
[2017-08-04] MEDS ORDERED: OXYTOCIN DRIP 30 UNIT/500 ML ML IV SCH ×2 (08:30→13:15)
[2017-08-04] MEDS ORDERED: NALOXONE 0.4 MG/ML INJECTION IVP PRN (09:01)
[2017-08-04] MEDS ORDERED: ONDANSETRON 4 MG/2 ML INJECTION IVP PRN (09:01)
[2017-08-04] MEDS ORDERED: ROPIVACAINE 1% 10MG/ML INJ 200 MG, SUFentanil 50 MCG in NS 100 ML EPI PRN (09:01)
[2017-08-04] MEDS ORDERED: DiphenhydrAMINE 50 MG/ML INJECTION IVP PRN (09:01)
--- NOTE | 2017-08-04 09:01 | Anesthesia Preoperative Report ---
Anesthesia Epidural/Spinal Rec - Date and Time Date: 08/04/17 Procedure: Labor Epidural Plan: Epidural - Vital Signs Vital Signs: Temperature 98.1 F 08/04/17 08:46 Pulse Rate 72 08/04/17 08:46 Blood Pressure 117/70 08/04/17 08:46 Pulse Oximetry 18 L 08/04/17 08:46 /Para: P:0 Heart Rate: 144 - Medictaions & Allergies Inpatient Medications: Current Medications Acetaminophen (Tylenol) 500 - 1,000 mg PO Q4H PRN PRN Reason: Pain Al Hydroxide/Mg Hydroxide (Maalox Plus) 30 ml PO Q3H PRN PRN Reason: Indigestion Calcium Carbonate (Tums) 500 - 1,000 mg PO Q2H PRN PRN Reason: Indigestion Carboprost Tromethamine (Hemabate) 250 mcg IM O PRN PRN Reason: .Downtime Lactated Ringer's (Lactated Ringers) 1,000 mls @ 999 mls/hr IV .Q1H1M PRN Last Admin: 08/04/17 08:39 Dose: 999 mls/hr Dextrose/Lactated Ringer's (Dextrose 5%-Lactated Ringers) 1,000 mls @ 125 mls/ hr IV .Q8H WILLIAM Oxytocin (Pitocin Drip) 30 unit in 500 mls @ 2 mls/hr IV .Q24H WILLIAM PRN Reason: Protocol Lidocaine HCl (Xylocaine-Mpf 1% Vial) 0.2 mg ID O PRN PRN Reason: IV Start Lidocaine HCl (Xylocaine-Mpf 1% Vial) 0.2 mg ID O PRN PRN Reason: IV Start Methylergonovine Maleate (Methergine) 0.2 mg IM O PRN Misoprostol (Cytotec) 800 mcg RI ONCE PRN Allergies/Adverse Reactions: Allergies Allergy/AdvReac Type Severity Reaction Status Date / Time No Known Allergies Allergy Verified 07/27/17 15:15 - Home Medications Home Medications: Home Medications Medication Instructions Recorded Confirmed Type Iron DAILY 07/27/17 History Vitamins 07/27/17 History Unisom 07/27/17 History Vitamin B Complex 07/27/17 History - Medical History Respiratory: Reports: Asthma (exercise induced- no inhaler needed for couple years) Cardiovascular: DENIES: Abnormal EKG, Angina, Arrhythmia, Congestive Heart Failure, Coronary Artery Disease, Heart Murmur, Hypertension, Hypotension, High Cholesterol, Myocardial Infarction, Rheumatic Fever, Valvular Heart Disease, Other Gastrointestional: DENIES: Gastroesophageal Reflux Disease (Denies) Renal/Endocrine: DENIES: Diabetes Mellitus Type 1, Diabetes Mellitus Type 2, Renal Failure, Dialysis, Thyroid Disease, Weight Loss, Weight Gain, Other Other History: Reports: Now - Surgical History Anesthesia Reactions: None Hx Family Anesthesia Reaction: No History of Motion Sickness: No - Social History Smoking Status: Never smoker Substance Use Type: does not use - Pertinent Findings Lab Data: CBC and BMP 08/04/17 07:52 EKG Rhythm: Normal Sinus Rhythm - Physical Exam Respiratory Exam: lungs clear, bilateral breath sounds equal Cardiovascular Exam: regular rate and rhythm, no murmur - Airway Assessment Mallampati Score: II TMD: 3 Fingerbreadths Neck Extension: good Overall Assessment: no airway concerns - ASA ASA Score: 2 - Discussion Discussion: Discussed risks/options/alternatives of anesthesia and questions answered. Patient consents. Nursing pain assessment noted. Anesthesia Discussion: spouse Attestation Statement: Prior to the delivery of any anesthetic medication, I examined the patient, developed the plan, obtained the patient's consent and discussed the risk and benefits of the procedure with the patient/guardian.
[2017-08-04 12:26] VITALS: BMI 27.3
[2017-08-04] MEDS ORDERED: DiphenhydrAMINE 25 MG CAPSULE PO PRN (13:12)
[2017-08-04] MEDS ORDERED: VARICELLA LIVE VACCINE 0.5 ML VIAL SQ ONE (13:12)
[2017-08-04] MEDS ORDERED: HYDROCORTISONE 2.5% CREAM 30gm RECTALLY PRN (13:12)
[2017-08-04] MEDS: IBUPROFEN 800 MG TABLET PO PRN ×2 (14:58→23:02)
[2017-08-04] MEDS: HYDROCODONE/APAP 5mg/325mg TABLET PO PRN ×2 (14:58→23:02)
--- NOTE | 2017-08-05 06:50 | Labor and Delivery Note ---
DATE OF DELIVERY 08/04/2017 DELIVERY NOTE Jennifer is a 21-year-old 1 at 39 weeks gestational age who presented to Maternal Child in spontaneous labor. She received an epidural. Her membranes ruptured spontaneously, initially returning clear fluid. However, at the time of pushing, she was found to have meconium-stained fluid. She progressed nicely throughout labor and only pushed for a short period of time. She had a spontaneous vaginal delivery in the HOLLIS position of a viable male , Apgars 9/9, weight 3045 g, name "Maciej." The baby was vigorous at delivery, so he was placed on mom's abdomen. The cord was shorter than average. Cord clamping was delayed for 4 minutes. The placenta delivered spontaneously. She had a right periurethral laceration that was repaired with 2-0 chromic. She also had a small second-degree perineal laceration that was repaired with 2-0 Vicryl. Mom and baby tolerated the delivery well. [facility]ITAL[facility]
--- NOTE | 2017-08-05 08:13 | OB/GYN Progress Note ---
OB-PP Progress Note - General PPD1 - Subjective Date: 08/05/17 Lochia: Moderate Pain: controlled (Using both Alleman 5mg/325mg and Ibuprofen 800mg) Voiding: voiding Nausea or Vomiting Present: No - Objective Vital Signs: Last Vital Signs Temp 98.0 F 08/05/17 07:00 Pulse 71 08/05/17 07:00 Resp 17 08/05/17 07:00 BP 120/65 08/05/17 07:00 Pulse Ox 98 08/05/17 02:55 Urine Output: good General: alert and oriented Abdomen: fundus firm Incision: normal Extremities: non-tender Laboratory: Laboratory Results - last 24 hr 08/04/17 07:52 Blood Type O Positive Antibody Screen Negative - Assessment Assessment: - Plan Plan: routine care (Unsure if she's going home or not. Will decide later. )
[2017-08-05] MEDS ORDERED: DOCUSATE CALCIUM 240 MG CAPSULE PO SCH (09:00)
[2017-08-05] MEDS: IBUPROFEN 800 MG TABLET PO PRN ×2 (11:24→22:07)
[2017-08-05 22:11] VITALS: O2SAT 98
[2017-08-06 06:01] VITALS: BP 127/76; PULSE 76; RESP 16; TEMP 98.3
--- NOTE | 2017-08-06 09:16 | OB/GYN Progress Note ---
OB-PP Progress Note - General PPD2 Maternal Group B Strep: Negative Maternal blood type: O+ Maternal Rubella Status: Immune - Subjective Date: 08/06/17 Lochia: Minimal Pain: controlled Voiding: voiding Nausea or Vomiting Present: No - Objective Vital Signs: Last Vital Signs Temp 98.3 F 08/06/17 06:00 Pulse 76 08/06/17 06:00 Resp 16 08/06/17 06:00 BP 127/76 08/06/17 06:00 Pulse Ox 98 08/06/17 06:00 Urine Output: good General: alert and oriented Respiratory: non-labored Abdomen: fundus firm, non-tender Extremities: non-tender Edema: none - Assessment Assessment: SP, - Plan Plan: routine care, discharge home
== END 2017-08-06 11:28 | disposition home or self-care (01) | DRG 775 ==
LOC: OBOBS 07:15 → MC 07:16
PROVIDERS: ADMIT Obstetrics & Gynecology; ATTEND Obstetrics & Gynecology